=== PATIENT | female | born 1980 | race Caucasian/White ===

== ENCOUNTER → 2016-02-26 | Outpatient (CLI) | payer BC ==
[~2016-02-26] MED LIST: PRENTAB26 PO; [UNRECOGNIZED DRUG - OTHER]; zyrtec
[2016-02-26 13:08] LABS: GTGD 50 Grams
== END | disposition home or self-care (01) ==
LOC: C.LAB1850 10:43
PROVIDERS: ATTEND Obstetrics & Gynecology
DX: O09.522 Supervision of elderly multigravida, second trimester (principal)

== ENCOUNTER → 2016-05-20 | Outpatient (CLI) | payer BC ==
[2016-05-20 12:26] LABS: HEMATOCRIT 35.1 % (37-47)
[2016-05-20 13:20] LABS: GTGD 50 Grams
== END | disposition home or self-care (01) ==
LOC: C.LAB1850 10:54
PROVIDERS: ATTEND Obstetrics & Gynecology
DX: O09.523 Supervision of elderly multigravida, third trimester (principal)

== ENCOUNTER → 2016-05-20 | Outpatient (CLI) | payer BC ==
[2016-05-20 15:13] LABS: URINE APPEARANCE CLEAR (CLEAR); URINE BILIRUBIN NEG (NEG); URINE COLOR YELLOW; URINE NITRITE NEG (NEG); URINE PH 6.5 (4.5-7.5); URINE SPECIFIC GRAVITY 1.009 (1.000-1.030); UROBILINOGEN NEG (NEG)
[2016-05-20 15:19] LABS: MANUAL MICROSCOPIC REQUIRED? NO; REVIEW REQ? NO
== END | disposition home or self-care (01) ==
LOC: C.LABSPEC 13:54
PROVIDERS: ATTEND Obstetrics & Gynecology
DX: O09.523 Supervision of elderly multigravida, third trimester (principal)

== ENCOUNTER → 2016-07-15 | Outpatient (CLI) | payer BC | END | disposition home or self-care (01) | LOC: C.LABSPEC 12:52 | PROVIDERS: ATTEND Obstetrics & Gynecology | DX: O09.523 Supervision of elderly multigravida, third trimester (principal); Z3A.00 Weeks of gestation of pregnancy not specified ==

== ENCOUNTER 2016-08-12 10:19 | Inpatient (IN) | payer BC ==
[~2016-08-12] VITALS: Ht 165.1 cm; Wt 89.1 kg
[2016-08-12] MEDS ORDERED: LACTATED RINGER'S 1000ML 1,000 ML IV PRN (11:25)
[2016-08-12] MEDS ORDERED: LACTATED RINGER'S 1000ML 1,000 ML IV SCH ×2 (11:25→13:56)
[2016-08-12 11:31] VITALS: Ht 165.1 cm; Wt 89.1 kg
[2016-08-12] MEDS ORDERED: PRENTAB26 PO (11:36)
[2016-08-12] MEDS ORDERED: zyrtec (11:36)
[2016-08-12] MEDS ORDERED: [UNRECOGNIZED DRUG - OTHER] (11:37)
[2016-08-12] MEDS ORDERED: BUPIVACAINE 0.25% 30 ML VIAL ONE (11:38)
[2016-08-12] MEDS ORDERED: FENTANYL 2MCG/ML ROPIV 1.25MG/ML 100ML BAG EPI ONE (11:39)
[2016-08-12] MEDS ORDERED: FENTANYL CITRATE INJ 50 MCG/1 ML 2 ML VIAL ONE (11:39)
[2016-08-12] MEDS ORDERED: EpHEDrine SULFATE INJ 50 MG/ML AMP ONE (11:39)
[2016-08-12 11:46] LABS: HEMATOCRIT 34.1 % (37-47); MEAN CELL VOLUME 89.5 fL (80-100); MEAN CORPUSCULAR HEMOGLOBIN 29.4 pg (25-34); MEAN PLATELET VOLUME 10.4 fL (7.4-10.4); PLATELET COUNT 174 K/uL (130-400); RED BLOOD COUNT 3.81 M/uL (4.2-5.4); WHITE BLOOD COUNT 10.59 K/uL (4.8-10.8)
[2016-08-12 11:50] LABS: MEAN CORPUSCULAR HGB CONC 32.8 g/dl (32-36)
[2016-08-12] MEDS ORDERED: LACTATED RINGER'S 1000ML 500 ML IV PRN (12:29)
[2016-08-12] MEDS ORDERED: NALOXONE HCL INJ 1 MG in SODIUM CHLORIDE 0.9% 1000ML 1,000 ML IV PRN (12:29)
[2016-08-12] MEDS ORDERED: NALOXONE HCL INJ 0.4 MG/1 ML VIAL/CARP IV PRN (12:30)
[2016-08-12] MEDS ORDERED: DiphenhydrAMINE HCL 50 MG/ML VIAL IV PRN (12:30)
[2016-08-12] MEDS ORDERED: NALBUPHINE HCL INJ 10 MG/ML AMP IV PRN (12:30)
[2016-08-12] MEDS ORDERED: EpHEDrine SULFATE INJ 50 MG/ML AMP IV PRN (12:30)
[2016-08-12] MEDS ORDERED: FENTANYL 2MCG/ML ROPIV 1.25MG/ML 100ML BAG EPI PRN (12:30)
[2016-08-12] MEDS ORDERED: OXYTOCIN 30 UNITS/500ML NSS IV ONE (13:53)
[2016-08-12] MEDS ORDERED: LANOLIN OINT EXT PRN ×2 (14:00)
[2016-08-12] MEDS ORDERED: OXYTOCIN 30 UNITS/500ML NSS IV PRN (14:00)
[2016-08-12] MEDS ORDERED: HYDROCORTISONE ACETATE 25 MG SUPP PR PRN (14:00)
[2016-08-12] MEDS ORDERED: SUPERCREAM 0.870 % 15GM JAR EXT PRN (14:00)
[2016-08-12] MEDS ORDERED: ACETAMINOPHEN 325 MG TAB PO PRN (14:00)
[2016-08-12] MEDS ORDERED: OXYCODONE/ACETAMINOPHEN 5-325 TAB PO PRN (14:00)
--- NOTE | 2016-08-12 14:08 | Medical Student: [facility] ---
Medical Student Delivery Note Tanisha Lovelace is a 36-year-old G3 now P2012 who presented for delivery at 40 weeks -04/28. Tanisha believes her membranes were ruptured prior to admission, but a high volume of meconium stained fluid was seen during cervical exam once here on the unit. The patient received epidural and became completely dilated and effaced. The patient pushed to deliver a viable female at 1348. Weight pending. The head was delivered in the occiput anterior position, and there was no nuchal cord. The infant's body restituted to the right occiput transverse position where the anterior then posterior shoulders were delivered without difficulty. The infant was placed on the maternal abdomen for drying and attention where her nose and mouth were bulb suctioned. The cord was doubly clamped and was then transected by the infant's father. Cord blood was obtained. An intact placenta with a 3 vessel cord was delivered shortly after with uterine massage and zenaida downward traction. Hemostasis was achieved with continued uterine massage and Pitocin. EBL was 400 cc and scores were 8 and 9. A first degree perineal laceration was apparent which was repaired with 3-0 Vicryl. Mother and are doing well and are currently recovering together.
--- NOTE | 2016-08-12 14:29 | DELIVERY SUMMARY ---
DATE OF OPERATION: 08/12/2016 PREOPERATIVE DIAGNOSES: 1. [place]iman intrauterine at 40 and 3. 2. Onset of labor. 3. Group B strep negative. DESCRIPTION: Tanisha Lovelace is a G3, P1 who presented at 40 and 3/7 weeks gestational age in active labor. She was admitted, provided with an epidural for pain management and managed expectantly. She did reach complete dilation with an urge to push and I was called to the room. I prepped and gowned for delivery and began pushing with Tanisha. Unfortunately, as she was pushing, another patient became ready to deliver at [facility] and unable to wait. Therefore, I broke scrub, leaving our medical student gowned and gloved between the legs of Ms. Lovelace and I rapidly went to deliver the other patient. I then returned to the room, at which point Tanisha resumed pushing. Over the next several pushes, she did deliver the head of her baby. The head restituted to the right occiput direction, meaning the infant's left shoulder was anterior. Through the next push, she was able to deliver the baby's shoulders and remainder of the body with no difficulty whatsoever. Of note, there was moderate meconium present at delivery. The was placed on the maternal abdomen and the face was quickly wiped and suction provided by the nurses. The cord was doubly clamped and cut by the father of the baby. The was noted to make respiratory efforts and move all extremities equally immediately upon delivery. The placenta then delivered spontaneously and was noted to be intact with a 3-vessel cord. A first degree perineal laceration was identified and repaired in the usual manner with 3-0 Vicryl suture. The cervix and vagina were free of any lacerations. The patient's fundus was well contracted. Her lochia was minimal and mother and were in stable condition at the time of this dictation, having tolerated delivery well. I attest to the content of the Intraoperative Record and any orders documented therein. Any exception s are noted below.
--- NOTE | 2016-08-12 14:57 | Anesthesia Procedure Note ---
Anesthesia Epidural Removal Nt Date & Time Aug 12, 2016 at 14:56 Vital Signs Pain Intensity: 10.0 Notes Mental Status: alert / awake / arousable, participated in evaluation Nausea / Vomiting: adequately controlled Pain: adequately controlled Airway Patency, RR, SpO2: stable & adequate BP & HR: stable & adequate Hydration State: stable & adequate Neuraxial Anesthesia: was administered Anesthetic Complications: no major complications apparent, pt satisfied with anesthetic care Epidural: removed without complications, with tip intact
[2016-08-12] MEDS: IBUPROFEN 600 MG TAB PO PRN ×2 (15:50→20:29)
[2016-08-12 17:00] VITALS: BP 125/82; PULSE 83; TEMP 36.6
[2016-08-12] MEDS: DOCUSATE SODIUM 100 MG CAP PO SCH (20:29)
[2016-08-12 23:00] VITALS: BP 116/76; PULSE 75; TEMP 36.6; O2SAT 97
[2016-08-12] MEDS: BENZOCAINE 20% AER SPR 82.5 GM CAN EXT PRN (23:26)
[2016-08-13 03:10] VITALS: BP 125/79; PULSE 84; TEMP 36.7; O2SAT 98
[2016-08-13] MEDS: IBUPROFEN 600 MG TAB PO PRN ×4 (03:26→20:23)
--- NOTE | 2016-08-13 06:40 | Medical Student: [facility] ---
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 Subjective conversation w/ patient, physical exam Ambulation: ambulating normally Voiding: no voiding problems Passing Gas: Yes Diet Tolerance: Regular Diet Lochia: Small Feeding Type: Breast Feeding Notes: Tanisha Lovelace is a 36-year-old G3 now P2012 day 1 for normal spontaneous vaginal delivery. She is doing "really good." Other than taking Motrin for pain on her bottom, she has no other complaints. She says she is ready to go home whenever her baby is ready. Review of Systems Constitutional: No fever, No chills Respiratory: No shortness of breath Cardiac: No chest pain Abdomen: No nausea, No vomiting Objective Vital Signs Date Time Temp Pulse Resp B/P (MAP) Pulse Ox O2 Delivery O2 Flow Rate FiO2 08/13/16 03:10 36.7 84 20 125/79 (94) 98 Room Air 08/12/16 23:00 36.6 75 18 116/76 (89) 97 Room Air 08/12/16 23:00 97 Room Air 08/12/16 17:00 Room Air 08/12/16 17:00 36.6 83 16 125/82 Physical Exam General Appearance: WELL-APPEARING Respiratory/Chest: lungs clear Cardiovascular: regular rate, rhythm, no edema, no gallop, + systolic murmur ( likely of normal ) Abdomen: normal bowel sounds Fundus: Relation to Umbilicus (unable to palpate) Extremities: no pedal edema, no calf tenderness Laboratory Results Last 24 Hours Test 08/12/16 11:39 08/13/16 06:27 White Blood Count 10.59 K/uL Red Blood Count 3.81 M/uL Hemoglobin 11.2 g/dL Hematocrit 34.1 % Mean Corpuscular Volume 89.5 fL Mean Corpuscular Hemoglobin 29.4 pg Mean Corpuscular Hemoglobin Concent 32.8 g/dl RDW Standard Deviation 45.8 fL RDW Coefficient of Variation 13.9 % Platelet Count 174 K/uL Mean Platelet Volume 10.4 fL Assessment and Plan Post- Day Number: 1 Continue Routine Care: Tanisha Lovelace is a 36-year-old G3 now P2012 day 1 for normal spontaneous vaginal delivery. Continue routine care.
[2016-08-13 06:58] LABS: HEMATOCRIT 37.5 % (37-47)
--- NOTE | 2016-08-13 07:36 | Discharge Instructions ---
Discharge Instructions Date of Service Aug 13, 2016. Admission Reason for Admission: R/O Labor Discharge Discharge Diagnosis / Problem: Vaginal delivery Discharge Goals Goal(s): Routine recovery after delivery Activity Recommendations Activity Limitations: per Instructions/Follow-up section . Instructions / Follow-Up Instructions / Follow-Up ACTIVITY RECOMMENDATIONS: * Gradual return to full activity over the next 2-3 weeks. * No lifting - nothing heavier than baby over the next 2-3 weeks. * Do not engage in vigorous exercise, sexual activity or sports until cleared by your physician. * Do not drive or operate any motorized equipment until cleared by your physician. * You may shower/bathe daily. MEDICATIONS: For discomfort or pain, you may use Acetaminophen (Tylenol), Ibuprofen (Advil), or Naproxen (Aleve) following the package directions. For constipation you may use Colace following the package directions. BREAST CARE: If you are not breast feeding: * Wear a supportive bra 24 hours a day for one to two weeks. * Avoid stimulating your breasts and nipples as much as possible during the first few weeks after delivery. * When taking a shower, have the warm water hit your back, not breasts. * When your breasts feel full, apply ice packs. Usually three to four times a day helps ease the discomfort. * Take a mild pain medication (Tylenol / Motrin) when you are uncomfortable. If breast feeding: * Use breast milk to lubricate nipples. Lansinoh cream may be used for sore nipples. You do not need to remove cream prior to breast feeding. If using a different brand of cream, check the label for directions regarding removal of cream prior to nursing. * Wear a supportive bra. * If having problems with breasts or breast feeding, call a curriculum consultant or your health care provider. EPISIOTOMY CARE: After delivery, if you have an episiotomy (stitches), the following steps will ease discomfort and aid healing. * For the first 24 hours after delivery, place ice packs next to your episiotomy to help reduce swelling. * After the first 24 hour-period, sitz baths, either portable or in the tub, are suggested. A shower with a shower arm sprayed over the episiotomy may be comforting. * Rola care should be done after each voiding and bowel movement. Squirt warm water from a plastic bottle over the perineum (region of the body between the anus and urinary opening) and pat dry. * Use Dermoplast to ease discomfort. Shake container. [place] directly over the episiotomy. Place a Tucks on a clean sanitary pad next to your episiotomy. SPECIAL CARE INSTRUCTIONS: When you are discharged from the hospital, it is important for you to follow the instructions listed below: * During the first week at home, you should be able to care for yourself and your baby. In addition, the usual light household activities are encouraged. * Limit your activities to the way you feel. Do not try to clean the house or move furniture. Be sensible. * If you actively engage in sports and have done so up until the time of your delivery, you may resume these activities as soon as you feel able. This may take up to one month or even longer. Use good judgment. * Continue to take your vitamins for at least six weeks after the of your baby. * Your diet need not be limited unless you were on a special diet before your delivery. Breast-feeding mothers need around 2500 calories per day and at least 64-80 ounces of fluid per day (8 to 10 glasses). * You should eat foods from the four major food groups. Crash diets or fad diets are to be avoided. Eating lean meats, fresh fruits and vegetables, low-fat dairy products, high fiber foods and a regular exercise program, will help you get back to your pre- weight without putting your health at risk. * Constipation is sometimes a problem after delivery. Take a mild laxative as needed. If breast feeding, Milk of Magnesia is acceptable to use. You may use a suppository or Fleets enema if no episiotomy. * A daily shower or tub bath is suggested. Be sure to thoroughly and gently dry the perineum. * A bloody vaginal discharge will usually continue until around four weeks post . A small amount of bleeding may continue for as long as six weeks. Vaginal discharge changes from the bright red bleeding after delivery to pink then brownish and finally yellowish-pink before becoming white and disappearing. * Bleeding may increase with activity. Your first period may come in 4-8 weeks. If you are breast feeding, your period may be delayed even longer. * [place] (sex) can begin whenever both you and your partner feel comfortable and do not have any form of genital infection. It is recommended that you wait at least six weeks for internal and external healing to occur. If you have questions, please talk to your health care practitioner. A condom should be used to prevent infection and . * Foreplay, gentle intercourse and lubrication is very important the first several times to prevent pain. A water-based lubricant such as K-Y jelly or Astroglide may be used. * If you have RH negative blood and your baby is RH positive, you will receive RHOGAM by injection prior to discharge. The nurse will give you a card to keep with you that has the date and place that you received RHOGAM after delivery. * During your care, you had a Rubella screen done to check for the presence of rubella antibodies in your blood. If your test was negative, you will receive a Rubella vaccine prior to discharge. This vaccine may cause a fever, soreness at the injection site and flu-like symptoms. If these symptoms persist, notify your health care practitioner. is not advised for one month after a Rubella vaccine. * Verbalizes understanding of car seat law as reviewed with patient nursing. * Car Seat hand-out given and reviewed with patient by nursing. * Shaken baby information reviewed with patient by nursing. Call you doctor if: * Heavy bleeding (saturating several pads an hour) or passing clots the size of your fist. * A fever >101 degrees F (38.3 degrees C) on two occasions four hours apart and /or chills. * Unusual pain in the pelvic or vaginal areas. * "Baby Blues" lasting longer than two weeks. If you have any questions or concerns, call your health care practitioner at . FOLLOW UP VISIT: * Please call the office at to schedule a 6 week examination. It is important you keep this appointment. It is important for you to make arrangements for either yearly or twice yearly check-ups thereafter. Current Hospital Diet Patient's current hospital diet: Regular OB Diet Discharge Diet Recommended Diet: Regular Diet Pending Studies Studies pending at discharge: no Medical Emergencies . Who to Call and When: Medical Emergencies: If at any time you feel your situation is an emergency, please call 911 immediately. . Non-Emergent Contact Non-Emergency issues call your: Primary Care Provider . . "Provider Documentation" section prepared by Zuleyka Wagner. . VTE Core Measure Inpt VTE Proph given/why not?: Treatment not indicated
[2016-08-13] MEDS: DOCUSATE SODIUM 100 MG CAP PO SCH ×2 (08:01→20:21)
[2016-08-13] MEDS: PRENATAL VITAMIN TAB PO SCH (08:02)
--- NOTE | 2016-08-13 08:04 | Progress Note ---
Subjective Aug 13, 2016. Subjective conversation w/ patient, physical exam, chart review Ambulation: ambulating normally Voiding: no voiding problems Passing Gas: Yes Diet Tolerance: Regular Diet Lochia: Moderate Feeding Type: Breast Feeding Review of Systems Constitutional: No fever, No chills Respiratory: No cough Cardiac: No chest pain Abdomen: No nausea, No vomiting Objective Vital Signs Date Time Temp Pulse Resp B/P (MAP) Pulse Ox O2 Delivery O2 Flow Rate FiO2 08/13/16 03:10 36.7 84 20 125/79 (94) 98 Room Air 08/12/16 23:00 36.6 75 18 116/76 (89) 97 Room Air 08/12/16 23:00 97 Room Air 08/12/16 17:00 Room Air 08/12/16 17:00 36.6 83 16 125/82 Physical Exam General Appearance: WELL-APPEARING, NO APPARENT DISTRESS Respiratory/Chest: no respiratory distress, no accessory muscle use Cardiovascular: no edema Abdomen: non tender, soft Fundus: Firm Extremities: no calf tenderness Laboratory Results Last 24 Hours Test 08/12/16 11:39 08/13/16 06:27 White Blood Count 10.59 K/uL Red Blood Count 3.81 M/uL Hemoglobin 11.2 g/dL 12.1 g/dL Hematocrit 34.1 % 37.5 % Mean Corpuscular Volume 89.5 fL Mean Corpuscular Hemoglobin 29.4 pg Mean Corpuscular Hemoglobin Concent 32.8 g/dl RDW Standard Deviation 45.8 fL RDW Coefficient of Variation 13.9 % Platelet Count 174 K/uL Mean Platelet Volume 10.4 fL Assessment and Plan Post- Day#: 1 Continue Routine Care: routine care.
[2016-08-13 08:13] VITALS: BP 131/88; PULSE 86; TEMP 36.7; O2SAT 97
[2016-08-13 12:00] VITALS: BP 124/82; PULSE 88; TEMP 36.7; O2SAT 98
[2016-08-13 15:30] VITALS: BP 137/83; PULSE 78; TEMP 36.7; O2SAT 97
[2016-08-13 23:15] VITALS: BP 140/86; PULSE 82; TEMP 36.6
[2016-08-14] MEDS: IBUPROFEN 600 MG TAB PO PRN (06:28)
--- NOTE | 2016-08-14 07:10 | Progress Note ---
Subjective Aug 14, 2016. Subjective conversation w/ patient, physical exam Ambulation: ambulating normally Voiding: no voiding problems Passing Gas: Yes Diet Tolerance: Regular Diet Lochia: Moderate Feeding Type: Breast Feeding Pain: controlled Review of Systems Constitutional: No problem reported Respiratory: No problem reported Cardiac: No problem reported Breast: No problem reported Abdomen: No problem reported Female : No problem reported Objective Vital Signs Date Time Temp Pulse Resp B/P (MAP) Pulse Ox O2 Delivery O2 Flow Rate FiO2 08/13/16 23:15 Room Air 08/13/16 23:15 36.6 82 18 140/86 (104) Room Air 08/13/16 15:30 97 Room Air 08/13/16 15:30 36.7 78 18 137/83 (101) 97 Room Air 08/13/16 12:00 36.7 88 18 124/82 (96) 98 Room Air 08/13/16 08:13 36.7 86 18 131/88 (102) 97 Room Air 08/13/16 08:00 Room Air Physical Exam General Appearance: WELL-APPEARING, NO APPARENT DISTRESS Respiratory/Chest: no respiratory distress Cardiovascular: regular rate, rhythm Abdomen: non tender, soft Fundus: Firm Extremities: normal inspection Assessment and Plan Post- Day#: 2 Continue Routine Care: PPD#2 doing well. RTO 6w. Discharge instructions discussed.
--- NOTE | 2016-08-14 07:18 | Medical Student: [facility] ---
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 Subjective conversation w/ patient Ambulation: ambulating normally Voiding: no voiding problems Passing Gas: Yes Diet Tolerance: Regular Diet Lochia: Small Feeding Type: Breast Feeding Pain: Improving with Motrin Notes: Tanisha Lovelace is a 36-year-old G3 now P2012 day 2 for normal spontaneous vaginal delivery. She says she is "doing a lot better" today and that her swelling in her feet and ankles has decreased. She has no other complaints at this time and would like to go home. Review of Systems Constitutional: No fever, No chills Cardiac: No chest pain Abdomen: No nausea, No vomiting Objective Vital Signs Date Time Temp Pulse Resp B/P (MAP) Pulse Ox O2 Delivery O2 Flow Rate FiO2 08/13/16 23:15 Room Air 08/13/16 23:15 36.6 82 18 140/86 (104) Room Air 08/13/16 15:30 97 Room Air 08/13/16 15:30 36.7 78 18 137/83 (101) 97 Room Air 08/13/16 12:00 36.7 88 18 124/82 (96) 98 Room Air 08/13/16 08:13 36.7 86 18 131/88 (102) 97 Room Air 08/13/16 08:00 Room Air Physical Exam General Appearance: WELL-APPEARING Respiratory/Chest: lungs clear Cardiovascular: regular rate, rhythm, no edema, no gallop, + systolic murmur ( likely due to normal ) Abdomen: normal bowel sounds Fundus: Relation to Umbilicus (low and unable to palpate) Extremities: no pedal edema, no calf tenderness Assessment and Plan Post- Day Number: 2 Continue Routine Care: Tanisha Lovelace is a 36-year-old G3 now P2012 day 2 for normal spontaneous vaginal delivery. - Continue routine care. - Discharge instructions given. Patient will follow up in [address] Wagner.
[2016-08-14 07:55] VITALS: BP 135/94; PULSE 93; TEMP 37.2; O2SAT 98
[2016-08-14] MEDS: PRENATAL VITAMIN TAB PO SCH (08:53)
[2016-08-14] MEDS: DOCUSATE SODIUM 100 MG CAP PO SCH (08:53)
[2016-08-14] MEDS: BENZOCAINE 20% AER SPR 82.5 GM CAN EXT PRN (08:54)
[2016-08-14 12:37] VITALS: BP_DIAS 94; PULSE 93; TEMP 37.2
== END 2016-08-14 12:37 | disposition home or self-care (01) | DRG 775 ==
LOC: C.LD 10:19 → C.OPB 10:19 → C.LD 11:26 → C.OBG 16:30
PROVIDERS: ADMIT Obstetrics & Gynecology; ATTEND Obstetrics & Gynecology
PROC: 0HQ9XZZ Repair Perineum Skin, External Approach (ICD-10-PCS; principal; 2016-08-12)
PROC: 10E0XZZ Delivery of Products of Conception, External Approach (ICD-10-PCS; principal; 2016-08-12)
DX: O48.0 Post-term pregnancy (principal); Z37.0 Single live birth; O70.0 First degree perineal laceration during delivery; O77.0 Labor and delivery complicated by meconium in amniotic fluid; O99.62 Diseases of the digestive system complicating childbirth; K21.9 Gastro-esophageal reflux disease without esophagitis; O99.02 Anemia complicating childbirth; D64.9 Anemia, unspecified; O99.214 Obesity complicating childbirth; E66.9 Obesity, unspecified; Z68.33 Body mass index [BMI] 33.0-33.9, adult; Z3A.40 40 weeks gestation of pregnancy; Z79.899 Other long term (current) drug therapy

== ENCOUNTER → 2016-09-23 | Outpatient (CLI) | payer BC | END | disposition home or self-care (01) | LOC: C.PAPS 15:11 | PROVIDERS: ATTEND Obstetrics & Gynecology | DX: Z01.419 Encounter for gynecological examination (general) (routine) without abnormal findings (principal) ==

== ENCOUNTER → 2017-09-24 | Outpatient (CLI) | payer OTHER ==
[2017-09-24 12:57] LABS: ALBUMIN 3.5 gm/dl (3.4-5.0); ALKALINE PHOSPHATASE 61 U/L (45-117); ALT/SGPT 30 U/L (12-78); AST/SGOT 30 U/L (15-37); BLOOD UREA NITROGEN 7 mg/dl (7-18); CALCIUM 8.6 mg/dl (8.5-10.1); CARBON DIOXIDE 27 mmol/L (21-32); CHOLESTEROL 189 mg/dl (0-200); CREATININE 0.59 mg/dl (0.60-1.20); GLUCOSE 85 mg/dl (70-99); LDL CHOLESTEROL CALCULATED 96 mg/dl; POTASSIUM 3.9 mmol/L (3.5-5.1); SODIUM 136 mmol/L (136-145); TOTAL PROTEIN 7.6 gm/dl (6.4-8.2)
== END | disposition home or self-care (01) ==
LOC: C.LABMFLN 07:21
PROVIDERS: ATTEND Neuromusculoskeletal Medicine & OMM
DX: Z13.220 Encounter for screening for lipoid disorders (principal); Z13.1 Encounter for screening for diabetes mellitus; K58.9 Irritable bowel syndrome, unspecified

== ENCOUNTER 2020-05-16 07:36 | Inpatient (IN) ==
[2020-05-16] MEDS ORDERED: OXYTOCIN 30 UNITS/500 ML BAG IV PRN ×2 (08:05→09:05)
[2020-05-16 08:31] LABS: Hematocrit (blood only) 29.6 % (37-47); Hemoglobin 9.9 g/dL (12.0-16.0); Mean Corpuscular Hemoglobin 28.3 pg (25-34); Mean Corpuscular Hgb Conc 33.4 g/dL (32-36); Mean Corpuscular Volume 84.6 fL (80-100); Mean Platelet Volume 10.7 fL (7.4-10.4); Platelet Count 201 K/uL (130-400); White Blood Count 8.46 K/uL (4.8-10.8)
[2020-05-16] MEDS: LACTATED RINGER'S 1,000 ML IV PRN ×4 (09:24→21:42)
--- NOTE | 2020-05-16 09:42 | History & Physical Report ---
Date of Service May 16, 2020 Assessment & Plan (1) Large for gestational age fetus affecting management of mother: (2) Supervision of elderly multigravida: (3) Encounter for induction of labor: admit, iv, labs. pt desires this induction of labor. fhts categ 1. will start pit, arom when able. pt desires epidural for pain mgmt ultimately. some elevated bps today but very anxious. no esteves, visual change or ruq pain. had brkfast, no n/v. will monitor bps for now. Admission and Anticipated Discharge Date Admission Date: May 16, 2020 History of Present Illness Chief Complaint: planned induction Primary Care Provider: Alexander Kingsley, 40yo at 39wks ega presents to L&D for planned induction No rom, vb. +FM. No ctx. PNC c/b 1. suspected LGA 2. AMA PNL Rh pos, RI, GBS neg OBH: x 2 GYNH: nl paps, no stds All Active Problems Large for gestational age fetus affecting management of mother Dermoid cyst of scalp Constipation Tension type headache Migraine with aura Migraine Anxiety Temporomandibular joint disorder (irritable bowel syndrome) GERD (gastroesophageal reflux disease) Allergies Allergy/AdvReac Type Severity Reaction Status Date / Time Penicillins Allergy Intermediate RASH Verified 05/16/20 08:10 midazolam [From Versed] AdvReac Intermediate "WIDE Verified 05/16/20 08:10 AWAKE EFFECT AND TACHYCARDIA" Home Medications Medication Instructions Recorded Confirmed Type omega 0-kvf-hsu-fish oil [Fish Oil] 1 cap PO HS 04/18/18 05/16/20 History magnesium citrate 100 mg tablet 400 mg PO DAILY #120 tab 02/10/19 05/16/20 Rx cetirizine 10 mg tablet 10 mg PO .TAKE 1 TABLET DAILY 10/11/19 05/16/20 History prenat.vits,darshana,ttb-iaht-iigak 1 tab PO DAILY 10/11/19 05/16/20 History citalopram 20 mg tablet 20 mg PO HS #30 tab 12/21/19 05/16/20 Rx pantoprazole 40 mg DAILY 05/16/20 05/16/20 History Patient History Medical History Anxiety Hiatal hernia History of chicken pox IBS (irritable bowel syndrome) Kidney stones Migraine Temporomandibular joint disorder Surgical History History of anesthesia reaction History of dilatation and curettage History of endoscopic sinus surgery History of tonsillectomy History of tooth extraction S/P colonoscopy S/P loop electrosurgical excision procedure Family History Aunt Diabetes Breast cancer Mother Heart failure Gallbladder disease Unknown Gallbladder disease Kidney stones Breast cancer Myocardial infarction Brother Kidney stones Grandfather Myocardial infarction Denies family history of Ovarian cancer Colorectal cancer Social History Smoking Status: Never smoker Second Hand Exposure: No; Hx Alcohol Use: Yes Alcohol type: beer, wine and hard liquor Hx Substance Use: No Preferred Language: Mongolian Communication Ability: Effective 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 Beliefs That Will Affect Care: None marital status: marital status details: Lars Villegas (44) [phone] Current Living Situation: Spouse and Family Current Living Situation Comment: lives with spouse, 2 children, dogs, chickens, cats-spouse changing litter current occupational status: employed current occupation: [employer][1] How many Children do You have: 2 Other Information That Helps Us Care for You: No Feels Safe at Home: Yes Safety Concerns: Feels Safe At This Time caffeine: No during the past year weight has: other Seatbelt Use: always Sunscreen Use: Yes Assistive Devices: None, Contacts and Glasses Review of Systems no fever Physical Exam Constitutional: WD/WN, vitals as above Respiratory: normal respiratory effort, lungs clear to auscultation Cardiovascular: Rate/Rhythm: regular rate and regular rhythm Gastrointestinal (Abdomen): soft gravid nt Musculoskeletal: no edema nontender calves Neurologic: grossly normal Psychiatric: A+Ox3, euthymic affect Genitourinary: OB Exam Abdomen: + estimated weight (8-9#) OB Exam Monitor Tracing: + external FHT monitor used (130 mod variability), + external uterine monitor used (no ctx), + category I and + normal FHT variability 3cm/50/-3 ant and soft sve yesterday Results & Data ([facility]) Vital Signs (Past 12 Hours) Vital Signs Temp Pulse Resp BP 05/16/20 08:53 103 H 127/78 05/16/20 08:08 114 H 129/85 05/16/20 08:07 114 H 143/89 H 05/16/20 08:05 123 H 139/91 05/16/20 08:04 98.2 F 16 Code Status & VTE Plan VTE Prophylaxis Plan VTE Prophylaxis will be ordered: Yes Coding Level of Care Code None Diagnoses Large for gestational age fetus affecting management of mother O36.60X0 Supervision of elderly multigravida O09.529 Encounter for induction of labor Z34.90
[2020-05-16] MEDS ORDERED: SODIUM CHLORIDE 0.9% INJ 10 ML VIAL ONE ×3 (13:39→20:10)
[2020-05-16] MEDS ORDERED: BUPIVACAINE 0.25% 30 ML VIAL ONE ×4 (13:39→23:59)
[2020-05-16] MEDS ORDERED: ePHEDrine sulfate 50 MG/ML AMP ONE ×2 (13:39→20:10)
[2020-05-16] MEDS ORDERED: fentaNYL citrate 100 MCG/2 ML VIAL ONE ×4 (13:40→23:59)
[2020-05-16] MEDS ORDERED: fentaNYL 2MCG/ML ROPIVACAINE 1.25MG/ML 100 ML BAG EPI ONE ×2 (13:41→20:11)
--- NOTE | 2020-05-16 13:54 | Labor Progress Brief Note ---
Date of Service May 16, 2020 Subjective Reason For Note: Routine Evaluation pt standing by bedside. pitocin infusing. wants her epidural and then will plan arom. Assessment & Plan (1) Large for gestational age fetus affecting management of mother: (2) Encounter for induction of labor: (3) Supervision of elderly multigravida: will plan epidural and then arom when comfortable. Admission and Anticipated Discharge Date Admission Date: May 16, 2020 Physical Exam Constitutional: WD/WN, vitals as above Genitourinary: OB Exam Monitor Tracing: + external FHT monitor used (130 mod v ariability), + external uterine monitor used (q3), + category I and + normal FHT variability Results & Data ([facility]) Vital Signs (Past 12 Hours) Vital Signs Temp Pulse Resp BP Pulse Ox 05/16/20 13:49 106 H 98 05/16/20 13:48 113 H 115/70 05/16/20 13:00 89 134/70 05/16/20 12:02 84 116/57 L 05/16/20 11:01 83 128/85 05/16/20 11:00 98.1 F 16 05/16/20 10:59 93 H 130/81 05/16/20 09:57 94 H 123/79 05/16/20 08:53 103 H 127/78 05/16/20 08:08 114 H 129/85 05/16/20 08:07 114 H 143/89 H 05/16/20 08:05 123 H 139/91 05/16/20 08:04 98.2 F 16 Coding Level of Care Code None Diagnoses Large for gestational age fetus affecting management of mother O36.60X0 Encounter for induction of labor Z34.90 Supervision of elderly multigravida O09.529
--- NOTE | 2020-05-16 14:00 | Anesthesiology Consultation ---
Date of Service May 16, 2020 Assessment & Plan Chart Review Chart Review: Acceptable Risk for Surgery, Patient NOT seen in Pre Admission Testing and Acceptable Risk for Labor Epidural Consults Requested none ASA ASA2 Proposed Anesthesia Anesthesia Type: Labor Epidural and CSE History Height/Weight Height: 5 ft 5 in Weight: 95.254 kg Allergies Allergy/AdvReac Type Severity Reaction Status Date / Time Penicillins Allergy Intermediate RASH Verified 05/16/20 08:10 midazolam [From Versed] AdvReac Intermediate "WIDE Verified 05/16/20 08:10 AWAKE EFFECT AND TACHYCARDIA" Medications Home Medications Medication Instructions Recorded Confirmed Last Taken omega 8-mbp-qto-fish oil [Fish Oil] 1 cap PO HS 04/18/18 05/16/20 05/15/20 21:00 magnesium citrate 100 mg tablet 400 mg PO DAILY #120 tab 02/10/19 05/16/20 05/15/20 21:00 cetirizine 10 mg tablet 10 mg PO .TAKE 1 TABLET DAILY 10/11/19 05/16/20 05/15/20 21:00 prenat.vits,darshana,qga-fttj-tezxa 1 tab PO DAILY 10/11/19 05/16/20 05/15/20 21:00 citalopram 20 mg tablet 20 mg PO HS #30 tab 12/21/19 05/16/20 05/15/20 pantoprazole 40 mg DAILY 05/16/20 05/16/20 05/16/20 08:00 Active Medications Generic Name Dose Route Start Last Admin Trade Name Freq PRN Reason Stop Dose Admin Lactated Ringer's 1,000 mls @ 125 mls/hr 05/16/20 08:05 05/16/20 13:38 Lr IV 05/18/20 08:04 999 mls/hr .Q8H PRN Infusion L&D Protocol Protocol Oxytocin 30 units in 500 mls @ 13 mls/hr 05/16/20 09:05 05/16/20 12:40 Pitocin IV 05/18/20 09:04 0.78 units/hr .Q24H PRN 13 mls/hr Labor Induction/Augmentation Titration Protocol 0.78 UNITS/HR Past Medical History Medical History Anxiety Hiatal hernia History of chicken pox IBS (irritable bowel syndrome) Kidney stones Migraine Temporomandibular joint disorder Exercise / Class Metabolic Activity II 4-5 Yardwork/Stairs/Walk up hill Past Family History Family History Aunt Diabetes Breast cancer Mother Heart failure Gallbladder disease Unknown Gallbladder disease Kidney stones Breast cancer Myocardial infarction Brother Kidney stones Grandfather Myocardial infarction Denies family history of Ovarian cancer Colorectal cancer Past Surgical History Surgical History History of anesthesia reaction WOKE UP IN MIDDLE OF SURGERY FOR WISDOM TEETH "VERSED CAUSES TACHYCARDIA AND WIDE AWAKE" History of dilatation and curettage History of endoscopic sinus surgery History of tonsillectomy History of tooth extraction S/P colonoscopy S/P loop electrosurgical excision procedure Past Anesthesia History No Hx of Anesthesia Complications and No Family Hx of Anesthesia Complications History of PONV No Hx of PONV and No Hx of Motion Sickness Social History Smoking Status: Never smoker Hx Alcohol Use: Yes Alcohol type: beer, wine and hard liquor alcohol intake frequency: a few times a month Hx Substance Use: No substance use type: does not use Physical Exam Vital Signs Last Vital Signs Temp 36.7 C 05/16/20 11:00 Pulse 97 H 05/16/20 13:54 Resp 16 05/16/20 11:00 BP 115/70 05/16/20 13:48 Pulse Ox 100 05/16/20 13:54 Testing Laboratory Results 05/16/20 08:15
[2020-05-16] MEDS ORDERED: LIDOCAINE HCL 1% 20 ML VIAL ONE (14:29)
[2020-05-16] MEDS ORDERED: PROMETHAZINE HCL 25 MG in SODIUM CHLORIDE 0.9% 50 ML IV PRN (14:42)
[2020-05-16] MEDS ORDERED: NALOXONE HCL 1 MG in SODIUM CHLORIDE 0.9% 1000ML 1,000 ML IV PRN (14:42)
[2020-05-16] MEDS ORDERED: NALOXONE HCL 0.4 MG/1 ML VIAL/CARP IV PRN (14:42)
[2020-05-16] MEDS ORDERED: ONDANSETRON INJ 2 MG/ML 2 ML VIAL IV PRN (14:42)
[2020-05-16] MEDS ORDERED: fentaNYL 2MCG/ML ROPIVACAINE 1.25MG/ML 100 ML BAG EPI PRN ×2 (14:42→21:25)
[2020-05-16] MEDS ORDERED: diphenhydrAMINE 50 MG/ML VIAL IV PRN (14:42)
[2020-05-16] MEDS ORDERED: ePHEDrine sulfate 50 MG/ML AMP IV PRN (14:42)
--- NOTE | 2020-05-16 16:39 | Labor Progress Brief Note ---
Date of Service May 16, 2020 Subjective Reason For Note: Routine Evaluation now comfortable with epidural Assessment & Plan (1) Large for gestational age fetus affecting management of mother: (2) Encounter for induction of labor: (3) Supervision of elderly multigravida: will see how arom helps progress. c/w pit. fhts categ 1. Admission and Anticipated Discharge Date Admission Date: May 16, 2020 Physical Exam Constitutional: WD/WN, vitals as above Genitourinary: Manual OB Exam: + cervical dilation 4 cm, + cervical effacement (75%), + station -2 and + amniotic fluid (AROM) clear OB Exam Monitor Tracing: + external FHT monitor used (130 mod variability), + external uterine monitor used (q2-3), + category I and + normal FHT variability Results & Data ([place]) Vital Signs (Past 12 Hours) Vital Signs Temp Pulse Resp BP Pulse Ox 05/16/20 16:34 102 H 99 05/16/20 16:32 100 H 135/70 05/16/20 16:29 108 H 100 05/16/20 16:24 110 H 100 05/16/20 16:19 111 H 97 05/16/20 16:17 96 H 131/71 05/16/20 16:14 114 H 97 05/16/20 16:09 100 H 98 05/16/20 16:04 106 H 99 05/16/20 16:01 101 H 132/77 05/16/20 16:00 18 05/16/20 15:59 106 H 99 05/16/20 15:54 99 H 100 05/16/20 15:49 96 H 98 05/16/20 15:46 93 H 131/74 05/16/20 15:44 100 H 100 05/16/20 15:39 102 H 99 05/16/20 15:34 102 H 100 05/16/20 15:29 103 H 100 05/16/20 15:25 93 H 123/71 05/16/20 15:24 103 H 100 05/16/20 15:20 98 H 122/69 05/16/20 15:19 100 H 99 05/16/20 15:16 94 H 121/67 05/16/20 15:14 103 H 98 05/16/20 15:11 97 H 117/63 05/16/20 15:09 110 H 98 05/16/20 15:05 107 H 114/58 L 05/16/20 15:04 103 H 99 05/16/20 15:00 108 H 113/56 L 05/16/20 14:59 108 H 97 05/16/20 14:58 99 H 117/57 L 05/16/20 14:56 118 H 98/53 L 05/16/20 14:54 110 H 106/60 97 05/16/20 14:52 99 H 110/61 05/16/20 14:50 97 H 100/57 L 05/16/20 14:49 107 H 96 05/16/20 14:48 98 H 98/57 L 05/16/20 14:46 90 102/60 88 L 05/16/20 14:44 81 71/38 L 99 05/16/20 14:42 85 92/54 L 05/16/20 14:41 97.5 F L 20 05/16/20 14:40 77 110/62 05/16/20 14:39 79 98 05/16/20 14:36 125 H 129/72 05/16/20 14:34 135 H 100 05/16/20 14:33 109 H 134/77 05/16/20 14:29 114 H 100 05/16/20 14:27 112 H 144/87 H 05/16/20 14:24 102 H 100 05/16/20 14:19 102 H 100 05/16/20 14:15 95 H 142/79 H 05/16/20 14:14 97 H 100 05/16/20 14:09 99 H 100 05/16/20 14:04 105 H 100 05/16/20 13:59 102 H 100 05/16/20 13:54 97 H 100 05/16/20 13:49 106 H 98 05/16/20 13:48 113 H 115/70 05/16/20 13:00 89 134/70 05/16/20 12:02 84 116/57 L 05/16/20 11:01 83 128/85 05/16/20 11:00 98.1 F 16 05/16/20 10:59 93 H 130/81 05/16/20 09:57 94 H 123/79 05/16/20 08:53 103 H 127/78 05/16/20 08:08 114 H 129/85 05/16/20 08:07 114 H 143/89 H 05/16/20 08:05 123 H 139/91 05/16/20 08:04 98.2 F 16 Coding Level of Care Code None Diagnoses Large for gestational age fetus affecting management of mother O36.60X0 Encounter for induction of labor Z34.90 Supervision of elderly multigravida O09.529
[2020-05-16] MEDS ORDERED: Nursing to Pharmacy Communication SCH (19:15)
--- NOTE | 2020-05-16 19:37 | Communication Note ---
Date of Service: May 16, 2020 At 1931,Pt. epidural was bolused w/ 12 ml 0.17% bupivacaine + 100 mcgs fentanyl,w/ incremental aspirations and injections. Vital signs are stable.
--- NOTE | 2020-05-16 22:51 | Labor Progress Brief Note ---
Date of Service May 16, 2020 Subjective Reason For Note: Routine Evaluation she needed new epidural and getting comfortable, although starting to feel some vaginal discomfort. Assessment & Plan (1) Large for gestational age fetus affecting management of mother: (2) Encounter for induction of labor: good cx change. pit max increased to 30. fhts categ 1. iupc placed to help guide pitocin dosing. Admission and Anticipated Discharge Date Admission Date: May 16, 2020 Physical Exam Constitutional: WD/WN, vitals as above Genitourinary: Manual OB Exam: + cervical dilation (6-7cm), + cervical effacement 80% and + station -1 OB Exam Monitor Tracing: + external FHT monitor used (150 mod variability, reactive), + external uterine monitor used (q3), + intra-uterine pressure catheter used (placed. ), + category I and + normal FHT variability +scalp stim response Results & Data ([facility]) Vital Signs (Past 12 Hours) Vital Signs Temp Pulse Resp BP Pulse Ox 05/16/20 22:44 127 H 146/74 H 100 05/16/20 22:41 98.2 F 18 05/16/20 22:39 118 H 100 05/16/20 22:34 120 H 99 05/16/20 22:29 116 H 98 05/16/20 22:28 127 H 18 112/63 05/16/20 22:24 124 H 97 05/16/20 22:19 122 H 98 05/16/20 22:14 121 H 119/67 99 05/16/20 22:09 118 H 98 05/16/20 22:04 115 H 99 05/16/20 21:59 108 H 97 05/16/20 21:58 122 H 18 118/61 05/16/20 21:54 123 H 97 05/16/20 21:49 123 H 98 05/16/20 21:44 118 H 98 05/16/20 21:42 122 H 130/67 05/16/20 21:39 122 H 126/67 99 05/16/20 21:37 117 H 18 131/70 05/16/20 21:34 123 H 99 05/16/20 21:33 131 H 106/57 L 05/16/20 21:30 97.7 F 136 H 18 106/56 L 05/16/20 21:29 138 H 98 05/16/20 21:28 120 H 18 116/62 05/16/20 21:24 134 H 99/56 L 99 05/16/20 21:21 121 H 115/65 05/16/20 21:19 131 H 97 05/16/20 21:18 129 H 114/61 05/16/20 21:17 115 H 110/63 05/16/20 21:15 86 78/44 L 05/16/20 21:14 71 83/49 L 95 05/16/20 21:12 92 H 95/51 L 05/16/20 21:11 114 H 96/55 L 05/16/20 21:09 126 H 133/69 98 05/16/20 21:06 125 H 133/64 05/16/20 21:04 131 H 97 05/16/20 21:03 133 H 143/63 H 05/16/20 21:00 130 H 141/80 H 05/16/20 20:59 133 H 99 05/16/20 20:54 139 H 100 05/16/20 20:49 141 H 98 05/16/20 20:45 126 H 139/65 05/16/20 20:44 135 H 100 05/16/20 20:39 120 H 99 05/16/20 20:34 117 H 98 05/16/20 20:31 123 H 20 133/62 05/16/20 20:29 119 H 95 05/16/20 20:24 124 H 96 05/16/20 20:19 119 H 99 05/16/20 20:14 123 H 152/71 H 97 05/16/20 20:09 112 H 96 05/16/20 20:04 122 H 95 05/16/20 20:00 123 H 150/69 H 05/16/20 19:59 124 H 97 05/16/20 19:54 119 H 97 05/16/20 19:49 103 H 95 05/16/20 19:44 108 H 18 128/58 L 96 05/16/20 19:42 105 H 20 133/63 05/16/20 19:40 111 H 130/64 05/16/20 19:39 114 H 96 05/16/20 19:35 116 H 138/73 05/16/20 19:34 113 H 96 05/16/20 19:31 115 H 133/73 05/16/20 19:29 123 H 97 05/16/20 19:24 116 H 96 05/16/20 19:19 116 H 95 05/16/20 19:17 114 H 138/72 05/16/20 19:14 98.2 F 122 H 18 96 05/16/20 19:09 116 H 96 05/16/20 19:04 119 H 96 05/16/20 19:01 113 H 135/70 05/16/20 18:59 121 H 96 05/16/20 18:54 114 H 96 05/16/20 18:49 115 H 96 05/16/20 18:45 108 H 134/74 05/16/20 18:44 108 H 98 05/16/20 18:39 111 H 97 05/16/20 18:34 114 H 97 05/16/20 18:32 106 H 133/72 05/16/20 18:29 108 H 98 05/16/20 18:24 106 H 98 05/16/20 18:19 105 H 99 05/16/20 18:16 112 H 132/76 05/16/20 18:14 100 H 100 05/16/20 18:09 106 H 98 05/16/20 18:04 106 H 100 05/16/20 18:02 112 H 130/92 05/16/20 17:59 102 H 98 05/16/20 17:54 107 H 98 05/16/20 17:49 102 H 98 05/16/20 17:47 104 H 117/59 L 05/16/20 17:44 101 H 99 05/16/20 17:39 104 H 98 05/16/20 17:34 105 H 99 05/16/20 17:30 95 H 117/58 L 05/16/20 17:29 101 H 100 05/16/20 17:24 97 H 98 05/16/20 17:19 97 H 99 05/16/20 17:17 99 H 118/60 05/16/20 17:14 98 H 100 05/16/20 17:09 95 H 100 05/16/20 17:04 99 H 99 05/16/20 17:00 98.2 F 98 H 16 118/64 05/16/20 16:59 107 H 99 05/16/20 16:54 97 H 100 05/16/20 16:49 93 H 99 05/16/20 16:46 96 H 123/60 05/16/20 16:44 98 H 99 05/16/20 16:39 96 H 99 05/16/20 16:34 102 H 99 05/16/20 16:32 100 H 135/70 05/16/20 16:29 108 H 100 05/16/20 16:24 110 H 100 05/16/20 16:19 111 H 97 05/16/20 16:17 96 H 131/71 05/16/20 16:14 114 H 97 05/16/20 16:09 100 H 98 05/16/20 16:04 106 H 99 05/16/20 16:01 101 H 132/77 05/16/20 16:00 18 05/16/20 15:59 106 H 99 05/16/20 15:54 99 H 100 05/16/20 15:49 96 H 98 05/16/20 15:46 93 H 131/74 05/16/20 15:44 100 H 100 05/16/20 15:39 102 H 99 05/16/20 15:34 102 H 100 05/16/20 15:29 103 H 100 05/16/20 15:25 93 H 123/71 05/16/20 15:24 103 H 100 05/16/20 15:20 98 H 122/69 05/16/20 15:19 100 H 99 05/16/20 15:16 94 H 121/67 05/16/20 15:14 103 H 98 05/16/20 15:11 97 H 117/63 05/16/20 15:09 110 H 98 05/16/20 15:05 107 H 114/58 L 05/16/20 15:04 103 H 99 05/16/20 15:00 108 H 113/56 L 05/16/20 14:59 108 H 97 05/16/20 14:58 99 H 117/57 L 05/16/20 14:56 118 H 98/53 L 05/16/20 14:54 110 H 106/60 97 05/16/20 14:52 99 H 110/61 05/16/20 14:50 97 H 100/57 L 05/16/20 14:49 107 H 96 05/16/20 14:48 98 H 98/57 L 05/16/20 14:46 90 102/60 88 L 05/16/20 14:44 81 71/38 L 99 05/16/20 14:42 85 92/54 L 05/16/20 14:41 97.5 F L 20 05/16/20 14:40 77 110/62 05/16/20 14:39 79 98 05/16/20 14:36 125 H 129/72 05/16/20 14:34 135 H 100 05/16/20 14:33 109 H 134/77 05/16/20 14:29 114 H 100 05/16/20 14:27 112 H 144/87 H 05/16/20 14:24 102 H 100 05/16/20 14:19 102 H 100 05/16/20 14:15 95 H 142/79 H 05/16/20 14:14 97 H 100 05/16/20 14:09 99 H 100 05/16/20 14:04 105 H 100 05/16/20 13:59 102 H 100 05/16/20 13:54 97 H 100 05/16/20 13:49 106 H 98 05/16/20 13:48 113 H 115/70 05/16/20 13:00 89 134/70 05/16/20 12:02 84 116/57 L 05/16/20 11:01 83 128/85 05/16/20 11:00 98.1 F 16 05/16/20 10:59 93 H 130/81 Coding Level of Care Code None Diagnoses Large for gestational age fetus affecting management of mother O36.60X0 Encounter for induction of labor Z34.90
[2020-05-16] MEDS ORDERED: NURSING L&D Epidural Breakthrough Pain Update ONE (23:40)
[2020-05-17] MEDS ORDERED: SODIUM CHLORIDE 0.9% INJ 10 ML VIAL ONE
--- NOTE | 2020-05-17 00:08 | Communication Note ---
Date of Service: May 17, 2020 At 0004 , Pt. epidural was bolused w/ 12 ml 0.17% bupivacaine + 100 mcgs Fentanyl, using incremental aspirations and injections. Vital signs are stable.
[2020-05-17] MEDS ORDERED: ACETAMINOPHEN 325 MG TAB PO STA (00:13)
[2020-05-17] MEDS ORDERED: ACETAMINOPHEN 325 MG TAB ONE (00:29)
[2020-05-17] MEDS: LACTATED RINGER'S 1,000 ML IV PRN (01:36)
[2020-05-17] MEDS ORDERED: OXYTOCIN 30 UNITS/500 ML BAG IV PRN (03:32)
[2020-05-17] MEDS ORDERED: oxyCODONE/ACETAMINOPHEN 5mg/325mg TAB PO PRN (03:32)
[2020-05-17] MEDS ORDERED: OXYTOCIN 20 UNITS in LACTATED RINGER'S 1,000 ML IV SCH (03:32)
--- NOTE | 2020-05-17 03:37 | Delivery Summary ---
Vaginal Delivery Summary Date of Service May 17, 2020 Vaginal Delivery Summary and 2nd Degree LAC The patient dilated to complete and pushed to deliver a viable female infant Apgars 8 and 9 via over 2nd degree perineal laceration. Mouth and nose bulb suctioned at perineum. Shoulders and body delivered with ease. Infant was vigorous and crying at . Cord clamped at 30 seconds of life and infant to maternal abdomen where the cord was then doubly clamped and cut. Placenta not delivered spontaneously as cord avulsed and removal by manual extraction. Additional sweep revealed no remaining products of conception. Inspection of placenta with high suspicion all removed. Hemostasis achieved with dilute pitocin and uterine massage and drainage of the bladder for approximately 50 cc under sterile conditions. Laceration repaired in usual fashion with 3-0 vicryl. Cervix and sulci intact. EBL 300 cc. Mother and baby stable recovery. [facility] [place] Vaginal Delivery Charge Delivery Type Details: and 2nd Degree LAC
[2020-05-17] MEDS ORDERED: SUPERCREAM 0.870% 15 GM JAR EXT PRN (03:46)
[2020-05-17] MEDS ORDERED: HYDROCORTISONE ACETATE 25 MG SUPP PR PRN (03:46)
[2020-05-17] MEDS ORDERED: BENZOCAINE 20% AER SPR 82.5 GM CAN EXT PRN (03:46)
[2020-05-17] MEDS ORDERED: DIPHTHERIA/TETANUS/PERTUSSIS 0.5 ML SYR/VIAL IM ONE (03:46)
[2020-05-17] MEDS: ceFAZolin 2000MG 2,000 MG/15 ML SYR IV SCH ×3 (04:11→20:08)
[2020-05-17] MEDS: IBUPROFEN 600 MG TAB PO PRN ×3 (05:56→16:09)
[2020-05-17] MEDS ORDERED: Nursing to Pharmacy Communication SCH ×2 (06:30→17:15)
--- NOTE | 2020-05-17 06:45 | Anesthesia Procedure Note ---
Date of Service May 17, 2020 Anesthesia Post Epidural Note Vital Signs Vital Signs: Temp Pulse Resp BP Pulse Ox 36.8 C 83 18 133/63 96 05/17/20 06:24 05/17/20 06:24 05/17/20 06:24 05/17/20 06:24 05/17/20 03:25 Pain Intensity Bilateral Abdomen: Pain Intensity: 2 Notes Mental Status: alert / awake / arousable Nausea / Vomiting: adequately controlled Pain: adequately controlled Airway Patency, RR, SpO2: stable & adequate BP & HR: stable & adequate Hydration State: stable & adequate Neuraxial Anesthesia: was administered and sensory block is resolving Anesthetic Complications: no major complications apparent Epidural: Removed without complications and With tip intact
[2020-05-17] MEDS: PANTOprazole 40 MG TAB PO SCH (07:56)
[2020-05-17] MEDS: DOCUSATE SODIUM 100 MG CAP PO SCH ×2 (07:56→21:02)
[2020-05-17] MEDS ORDERED: PANTOprazole 40 MG TAB PO SCH (09:00)
[2020-05-17] MEDS ORDERED: CETIRIZINE HCL 10 MG TABLET PO SCH ×2 (09:00→21:00)
[2020-05-17] MEDS: ACETAMINOPHEN 325 MG TAB PO PRN ×2 (13:03→18:35)
[2020-05-17] MEDS ORDERED: CITALOPRAM 20 MG TAB PO SCH (21:00)
--- NOTE | 2020-05-18 04:39 | Obstetrical Progress Note ---
Date of Service <Clayton Will MD - Last Filed: 05/18/20 06:31> May 18, 2020 Assessment & Plan <Clayton Will MD - Last Filed: 05/18/20 06:31> (1) Encounter for induction of labor: - PNL: Rh pos, RI, GBS neg, COVID neg - Feels well today. Eating well, voiding well, ambulating well - Pain well controlled with ibuprofen 600mg Q4H PRN - Routine care -- OOB, ambulation, diet progression as tolerated - After discharge will have 6 week follow-up with Dr. Aly Armendariz <Clayton Will MD - Last Filed: 05/18/20 06:31> Tanisha is a 40 y/o female who is PPD #1 following at 39 weeks. She reports feeling well overall this morning. Some abdominal cramping and 3/10 pain well managed on analgesics. Voiding well. Tolerating meals overnight without difficulty. Patient has been able to ambulate some. Is passing gas, has yet to have a bowel movement. Has persistent lochia with some improvement this morning. Currently bottle feeding. Physical Exam <Clayton Will MD - Last Filed: 05/18/20 06:31> General: Alert, oriented. No acute distress. Cardiac: Regular rate and rhythm. No murmurs. Respiratory: Clear to auscultation bilaterally a/p, no wheezes/rales/rhonchi. No increased work of breathing. Symmetrical chest rise. No respiratory distress. Abdomen: Soft, nontender, nondistended. Bowel sounds present. Uterus: Uterine fundus firm, palpable ~1 cm below umbilicus. Lower Extremities: No lower extremity edema or swelling. No deep calf pain. Mckenna's negative bilaterally. Results & Data ([facility]) <Clayton Will MD - Last Filed: 05/18/20 06:31> Vital Signs (Past 12 Hours) Vital Signs Temp Pulse Resp BP Pulse Ox 05/18/20 02:55 36.6 C 69 16 122/79 98 05/17/20 23:00 36.7 C 83 18 122/78 98 05/17/20 19:00 36.8 C 77 16 119/76 100 <Zuleyka Wagner MD - Last Filed: 05/18/20 08:10> Co-Signing Physician Notes Resident Physician Supervision Note: I interviewed and examined the patient. Discussed with Dr. Pineda and agree with findings and plan as documented in the note. Any exceptions or clarifications are listed here: [ ] Documented By: Zuleyka Wagner MD, FACOG Resident Activity Tracking <Clayton Will MD - Last Filed: 05/18/20 06:31> Resident Involvement: Resident Care Provided Care Provided: OB Delivery
[2020-05-18] MEDS: IBUPROFEN 600 MG TAB PO PRN (06:13)
[2020-05-18 06:43] LABS: Hematocrit (blood only) 26.2 % (37-47); Hemoglobin 8.4 g/dL (12.0-16.0); Mean Corpuscular Hemoglobin 27.5 pg (25-34); Mean Corpuscular Hgb Conc 32.1 g/dL (32-36); Mean Corpuscular Volume 85.9 fL (80-100); Mean Platelet Volume 10.7 fL (7.4-10.4); Platelet Count 183 K/uL (130-400); RDW Coefficient of Variation 14.4 % (11.5-14.5); RDW Standard Deviation 44.5 fL (36.4-46.3); Red Blood Count 3.05 M/uL (4.2-5.4); White Blood Count 9.77 K/uL (4.8-10.8)
[2020-05-18] MEDS: DOCUSATE SODIUM 100 MG CAP PO SCH (08:23)
[2020-05-18] MEDS: PANTOprazole 40 MG TAB PO SCH (08:23)
[2020-05-18] MEDS: ACETAMINOPHEN 325 MG TAB PO PRN (08:24)
== END 2020-05-18 11:55 | disposition home or self-care (01) | DRG 807 ==
LOC: 4S1 07:36 → 4S2 05-17 06:20